=== PATIENT | female | born 1965 | race Caucasian/White ===

== ENCOUNTER 2017-07-19 23:34 | Emergency (ER) | payer OTHER ==
[2017-07-20 00:40] LABS: #Eosinphils 0.1 thou/uL (0.0-0.7); #Monocytes 0.6 thou/uL (0.11-0.59); #Neutrophils 5.8 thou/uL (1.40-6.50); %Basophils 0.4 % (0.0-1.0); %Lymphocytes 13.3 % (21.0-51.0); %Monocytes 7.9 % (0.0-10.0); Hematocrit 37.7 % (36.0-47.0); Mean Platelet Volume 8.7 fL (7.4-10.4); Red Blood Cell (RBC) Count 3.82 mill/uL (4.20-5.40); White Blood Cell (WBC) Count 7.5 thou/uL (4.8-10.8)
[2017-07-20] MEDS ORDERED: Ondansetron HCl/PF 4 MG/2 ML Vial ONE (00:49)
[2017-07-20 01:51] LABS: ALT (SGPT) 7 U/L (8-55); AST (SGOT) 13 U/L (5-34); Alkaline Phosphatase 93 U/L (40-150); Anion Gap 9 mmol/L (10-20); BUN (Urea Nitrogen) 9 mg/dL (9.8-20.1); Bilirubin, Total 0.4 mg/dL (0.2-1.2); Calc. Creatinine Clearance 0 mL/min (70-130); Calcium 8.8 mg/dL (7.8-10.44); Carbon Dioxide 26 mmol/L (22-29); Chloride 110 mmol/L (98-107); Estimated GFR-MDRD Greater than 90; Globulin 2.9 g/dL (2.4-3.5); Protein, Total 6.7 g/dL (6.0-8.3)
[2017-07-20 02:22] LABS: Bilirubin Negative (Negative); Blood, Urine Negative (Negative); Glucose, Urine (Dipstick) Negative (Negative); Ketone, Urine Negative (Negative); Nitrite Negative (Negative); Protein, Urine (Dipstick) Negative (Neg-Trace); Urobilinogen 0.2 mg/dL (0.2-1.0)
[2017-07-20] MEDS ORDERED: Diazepam 5 MG TAB ONE (03:56)
--- NOTE | 2017-07-20 08:57 | RAD ---
RADIOGRAPH CHEST 1 VIEW: HISTORY: 52-year-old female with nontraumatic left-sided chest pain. FINDINGS: There are no air space densities, pulmonary edema, pneumothorax, or cardiomegaly. The lateral costo phrenic angles are sharp. There is lumbar levoscoliosis and thoracic dextroscoliosis. IMPRESSION: 1. No acute cardiopulmonary findings. 2. S-shaped scoliosis of the thoracolumbar spine. peter [] POS: WARN[facility]
== END 2017-07-20 04:15 | disposition home or self-care (01) ==
LOC: ERS 23:34
DX: M62.830 Muscle spasm of back (principal); M41.9 Scoliosis, unspecified; E03.9 Hypothyroidism, unspecified; G43.909 Migraine, unspecified, not intractable, without status migrainosus; Z79.899 Other long term (current) drug therapy
CPT/HCPCS: 36415; 71010; 80053; 81003; 85025; 87086; 96374; 96375; 96376; J2270; J2405